=== PATIENT | male | born 1970 | race Hispanic/Latino ===

== ENCOUNTER 2017-09-10 22:51 | Emergency (ER) | payer SELFPAY ==
[2017-09-10 22:51] VITALS: BMI 19.5
[2017-09-10 23:00] VITALS: BP 114/74; PULSE 68; RESP 20; TEMP 97.8; O2SAT 97
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
== END 2017-09-11 01:06 | disposition home or self-care (01) ==
LOC: C.ER 22:51
DX: S43.401A Unspecified sprain of right shoulder joint, initial encounter (principal); S70.02XA Contusion of left hip, initial encounter; V03.90XA Pedestrian on foot injured in collision with car, pick-up truck or van, unspecified whether traffic or nontraffic accident, initial encounter; Y92.410 Unspecified street and highway as the place of occurrence of the external cause